=== PATIENT | male | born 1940 ===

== ENCOUNTER 2025-10-14 12:01 | Emergency (ER) | payer MEDICARE, MEDICAID ==
[~2025-10-14] VITALS: Ht 165.1 cm; Wt 80.0 kg
--- NOTE | 2025-10-14 12:11 | Physician Documentation ---
History of Present Illness General Stated Complaint: CONGESTION Time Seen by MD: 12:11 History of Present Illness Initial Comments 85 year old male presents to the emergency department via EMS from his home in [place] for complaints of a cough. History was given by family who states that when they had checked in on him he was moving strangely and when asked about it he didn't even realize he was doing it. Another complaint form the family is that he has been having a persistent cough after he had gotten sick one month ago. Medication Reconciliation Allergies: Coded Allergies: No Known Allergies (Unverified , 10/14/25) Scheduled Azithromycin (Zithromax), 1 TAB PO DAILY Scheduled PRN Albuterol Sulfate (Ventolin Hfa), 2 PUFFS INH Q4HPRN PRN for SOB or wheezing Benzonatate* (Benzonatate*), 1 CAP PO Q6H PRN for cough Review of Systems All Other Systems at this time: Reviewed and Negative ROS Patient was asked, but denied any other symptoms. All other systems are negative other than those mentioned above. Physical Exam Physical Exam Vital Signs: RN Vital Signs have been reviewed: Yes Pulse Oximetry Reflects: adequate oxygenation Physical Exam VITALS: Reviewed and as above. GENERAL: Alert, no apparent distress. HEENT: Normocephalic, atraumatic. PERRL, EOMI. Dry mucosa, no erythema. RESPIRATORY: Lungs clear, normal breath sounds, no respiratory distress. CHEST: No accessory muscle use, no retractions. CV: Regular rate and rhythm. No edema, no murmur, No: JVD GI: Soft, non-tender, bowel sounds present. No rebound, guarding, or rigidity. BACK: No CVA tenderness, no swelling. MUSCULOSKELETAL: No deformities, no edema SKIN: Warm and dry, no rash. NEURO: Oriented x4. No motor or sensory deficit. PSYCH: Normal mood and affect, no agitation. Progress Results/Orders Results/Orders Orders - OHLSHANTEL HINKLE MD Chest,Two Views (10/14/25 12:13) Culture Blood (10/14/25 12:13) Saline Lock (10/14/25 12:13) Oxygen (10/14/25 12:13) Ceftriaxone/B2t-Nmpruvll 1gm (Rocephin 1 (10/14/25 15:05) Svn Treatment (10/14/25 ) Completed Orders - OHLFSSHANTEL MD Chest,Two Views (10/14/25 12:13) Cbc/Diff (10/14/25 12:13) BMP (10/14/25 12:13) PBNP (10/14/25 12:13) Lacticsepsis (10/14/25 12:13) Procalcitonin (10/14/25 13:06) Urinalysis, Cult If Indicated (10/14/25 13:13) Normal Saline 1000ml (0.9% Sodium Chlori (10/14/25 13:20) Ipratropium/Albuterol Nebule (Ipratrop/A (10/14/25 15:05) Medications Received in ER Medications (Trade) Dose Ordered Sig/Rochelle Route PRN Reason Start Time Stop Time Status Last Admin Dose Admin (0.9% sodium chloride (NS) 1000ml IV soln) 1,000 ml ONCE ONCE IVB 10/14/25 13:20 10/14/25 13:21 DC 10/14/25 13:22 1,000 ML Vital Signs 10/14/25 10/14/25 10/14/25 10/14/25 12:14 12:21 13:11 13:26 Temp 99.0 Pulse 91 83 Resp 19 18 17 B/P (MAP) 133/61 112/84 (93) Pulse Ox 95 95 94 O2 Delivery Nasal Cannula* O2 Flow Rate 2.0 2 2.0 FiO2 28 10/14/25 14:07 Temp 99.0 Pulse 83 Resp 15 B/P (MAP) 138/72 (94) Pulse Ox 95 O2 Flow Rate 2.0 FiO2 28 Laboratory Tests Test 10/14/25 12:11 10/14/25 14:17 White Blood Count 15.2 H Red Blood Count 4.53 L Hemoglobin 14.2 Hematocrit 42.6 Mean Corpuscular Volume 94.1 Mean Corpuscular Hemoglobin 31.3 H Mean Corpuscular Hemoglobin Concent 33.2 Red Cell Distribution Width 14.0 Platelet Count 211 Mean Platelet Volume 7.6 Neutrophils (%) (Auto) 86.4 H Lymphocytes (%) (Auto) 6.7 L Monocytes (%) (Auto) 6.7 Eosinophils (%) (Auto) 0 Basophils (%) (Auto) 0.2 Neutrophils # (Auto) 13.1 H Lymphocytes # (Auto) 1.0 L Monocytes # (Auto) 1.0 H Eosinophils # (Auto) 0.0 Basophils # (Auto) 0.0 CBC Comment Sodium Level 137 Potassium Level 3.9 Chloride Level 102 Carbon Dioxide Level 28.4 Anion Gap 7 L Blood Urea Nitrogen 19 H Creatinine 1.20 H Estimated GFR/1.73 m2 58 BUN/Creatinine Ratio 15.8 Glucose Level 111 H Lactic Acid Level 1.2 Calcium Level 9.5 Pro-B-Type Natriuretic Peptide 349 Albumin 3.6 Procalcitonin 0.05 Chemistry Comments Urine Specimen Description Non-specified Urine Color Yellow Urine Clarity Clear Urine pH 6.0 Urine Specific [place] 1.010 Urine Protein Negative Urine Glucose (UA) Negative Urine Ketones Negative Urine Occult Blood Negative Urine Nitrite Negative Urine Bilirubin Negative Urine Urobilinogen 0.2 Urine Leukocyte Esterase Negative Urine Culture Indicated Not ind Volume Urine Centrifuged 10 ml Urine Comment Microbiology Date/Time Source Procedure Growth Status 10/14/25 12:13 Blood Iv Start Blood Culture - Preliminary NEGATIVE (LESS THAN 24 HOURS) Resulted EKG/XRAY/CT/US/VASC/MRI Chest X-Ray : Additional Comments CHEST RADIOGRAPH INDICATION: PNA TECHNIQUE: Frontal and lateral view of the chest was obtained COMPARISON: None FINDINGS: Lines and Tubes: None Lungs: Clear Pleura: No effusion. No pneumothorax. Cardiomediastinal contours: Unremarkable Bones: Unremarkable IMPRESSION: 1. No evidence of acute disease. Electronically Signed by:NAE STAHL MD Date & Time: 10/14/25 1234 Departure Time of Disposition: 15:03 Disposition: 01 HOME / SELF CARE / HOMELESS Impression: Primary Impression: Bronchitis Condition: Stable Discharge Instructions: Acute Bronchitis, Adult Referrals: NO PRIMARY CARE PROVIDER (PCP) Prescriptions Albuterol Sulfate (Ventolin Hfa) 90 Mcg Hfa.aer.ad 2 PUFFS INH Q4HPRN PRN for SOB or wheezing, #1 INHALER Prov: SHANTEL GOLDBERG MD 10/14/25 Benzonatate* (Benzonatate*) 100 Mg Capsule 1 CAP PO Q6H PRN for cough, #20 CAP Prov: SHANTEL GOLDBERG MD 10/14/25 Azithromycin (Zithromax) 250 Mg Tablet 1 TAB PO DAILY, #6 TAB azithromycin z pack as directed in packaging Prov: SHANTEL GOLDBERG MD 10/14/25 Education Educated: Patient, Family Educated regarding: diagnosis, treatment Signature Scribe Signature: Scribed for Shantel Goldberg MD by Jerome Tobar . 10/14/25 14:16 SHANTEL GOLDBERG MD Oct 14, 2025 12:11 JEROME SILVERIO Oct 14, 2025 14:16
[2025-10-14 12:34] LABS: MEAN PLATELET VOLUME 7.6 FL (7.4-10.4); RED CELL DISTRIBUTION WIDTH 14.0 % (11.5-14.5)
--- NOTE | 2025-10-14 12:36 | RADIOLOGY REPORT ---
CHEST RADIOGRAPH INDICATION: PNA TECHNIQUE: Frontal and lateral view of the chest was obtained COMPARISON: None FINDINGS: Lines and Tubes: None Lungs: Clear Pleura: No effusion. No pneumothorax. Cardiomediastinal contours: Unremarkable Bones: Unremarkable IMPRESSION: 1. No evidence of acute disease.
[2025-10-14 12:47] LABS: CREATININE 1.20 MG/DL (0.60-1.10); PRO BRAIN NATRIURETIC PEPTIDE 349 PG/ML (0-450); TOTAL CARBON DIOXIDE 28.4 MMOL/L (24-32); eCRCL 39 ML/MIN; eGFR 58 ML/MIN
[2025-10-14] MEDS: normal saline 1000ML IV soln IVB ONE (13:22)
[2025-10-14 14:25] LABS: LEUKOCYTE ESTERASE ,URINE NEGATIVE (Neg); NITRITES, URINE NEGATIVE (Neg); OCCULT BLOOD,URINE NEGATIVE (Neg)
[2025-10-14 14:30] LABS: UA COLLECTION TYPE NON-SPECIFIED
[2025-10-14] MEDS ORDERED: AZIT-164 PO (15:12)
[2025-10-14] MEDS ORDERED: ALBU18HF2 INH (15:12)
[2025-10-14] MEDS ORDERED: BENZ-38 PO (15:12)
[2025-10-14] MEDS: ipratropium/albuterol 3ml nebule NEB ONE (15:41)
[2025-10-14 15:43] VITALS: PULSE 96; RESP 18
[2025-10-14 15:46] VITALS: PULSE 91; RESP 18; O2SAT 90
[2025-10-14] MEDS: CefTRIAXone/D5W-Rocephin 1gm 50 ML IV ONE (15:51)
[2025-10-14 16:37] VITALS: BP 117/50; RESP 18; TEMP 99; O2SAT 92
== END 2025-10-14 16:39 | disposition home or self-care (01) ==
LOC: ER 12:05
DX: J40 Bronchitis, not specified as acute or chronic (principal)
CPT/HCPCS: 36415; 71046; 80048; 81003; 83605; 83880; 84145; 85025; 87040; 94640; 96365; 99284; J0696; J7030; 94760